=== PATIENT | female | born 1980 | race Caucasian/White ===

== ENCOUNTER 2021-03-27 18:29 | Inpatient (IN) ==
[2021-03-27] MEDS ORDERED: OXYTOCIN 30 UNITS/500 ML BAG IV PRN ×2 (19:02→19:36)
[2021-03-27 19:26] LABS: Hematocrit (blood only) 37.1 % (37-47); Hemoglobin 11.9 g/dL (12.0-16.0); Mean Corpuscular Hemoglobin 25.8 pg (25-34); Mean Corpuscular Hgb Conc 32.1 g/dL (32-36); Mean Corpuscular Volume 80.3 fL (80-100); Mean Platelet Volume 10.5 fL (7.4-10.4); Platelet Count 215 K/uL (130-400); RDW Coefficient of Variation 14.6 % (11.5-14.5); RDW Standard Deviation 42.4 fL (36.4-46.3); Red Blood Count 4.62 M/uL (4.2-5.4)
--- NOTE | 2021-03-27 19:29 | History & Physical Report ---
Date of Service March 27, 2021 Assessment & Plan (1) premature rupture of membranes: Plan: 40 y/o at 36 3/7 wga presenting w/ PPROM VSS Fetus cat 1 PPROM - at this GA will move forward with delivery. Discussed risks vs benefits of bmz, this was also discussed with coin dealer transportation department head who did not feel was indicated at this GA. Pt and will defer at this time. Plan to let pt ambulate and recheck, will start pit if no change GBS neg Epidural PRN History of Present Illness Chief Complaint: LOF Primary Care Provider: Jesús Lauren, 40 y/o at 36 3/7 wga w/ COLLIN 04/21 by LMP presents due to LOF. Had big gush around 530 pm and has been leaking since then. 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 Allergies Allergy/AdvReac Type Severity Reaction Status Date / Time latex Allergy Unknown "MILD" - Verified 03/25/21 10:53 REDNESS , ITCHY Penicillins Allergy Unknown UNSURE - Verified 03/25/21 10:53 NEVER HAD, GRANMOTHER AND MOM/ SEVERE HIVE REACTION Home Medications Medication Instructions Recorded Confirmed Type prenat.vits,noemy,aun-nrzq-ffcgi 1 tab PO DAILY 02/03/20 03/27/21 History Patient History Medical History (Updated 03/27/21 @ 19:47 by Anahi Payton MD) History of anesthesia reaction WAKE UP FAST FROM ANESTHESIA, APPEAR AWAKE BUT REMAIN DISORIENTED History of depression Missed ab Surgical History (Updated 03/27/21 @ 19:43 by Anahi Payton MD) H/O laparoscopy 12/16/01 - LLQ pain H/O oral surgery History of loop electrical excision procedure (LEEP) 2019 Status post colposcopy Bx with ECC: 04/22/11 & 12/13/09 Social History (Updated 09/13/20 @ 13:39 by Karen Cooper) Smoking Status: Never smoker Hx Alcohol Use: No Hx Substance Use: No Preferred Language: Korean Communication Ability: Effective Code And Test Clerk Required: No Beliefs That Will Affect Care: None marital status: marital status details: Bret (54) [phone] Current Living Situation: Spouse Current Living Situation Comment: lives with spouse, 10 dogs, 3 cats, 15 parrots, spouse to do litter. 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 Other Information That Helps Us Care for You: No Feels Safe at Home: Yes Physical Activity Frequency: 3-4 Times per Week Assistive Devices: None Physical Exam Constitutional: WD/WN, vitals as above Respiratory: normal respiratory effort; no respiratory distress and no labored breathing Genitourinary: OB Exam Abdomen: + vertex and + estimated weight (6-7) Manual OB Exam: + cervical dilation 2 cm, + cervical effacement 90%, + station - 2 and + amniotic fluid (+nitrazine, pooling, ferning) OB Exam Monitor Tracing: + external FHT monitor used, + external uterine monitor used (irreg ctx) and + category I (150/mod/+accel/-decel) Results & Data ([facility]) Vital Signs (Past 12 Hours) Vital Signs Temp Resp 03/27/21 18:34 99.0 F 18 Laboratory Results OB Labs: Blood Type A Positive 09/17/20 Antibody Screen NEGATIVE 09/17/20 Hemoglobin 12.0 g/dL (12.0-16.0) 01/28/21 Hematocrit 37.2 % (37-47) 01/28/21 Mean Corpuscular Volume 88.7 fL (80-100) 09/17/20 Platelet Count 304 K/uL (130-400) 09/17/20 Rubella IgG Antibody Immune (Immune) 09/17/20 Rapid Plasma Reagin Nonreactive (Nonreactive) 09/17/20 Hepatitis B Surface Antigen Neg (Neg) 09/17/20 HIV (1&2) Ab and P24 Ag, 4th Gener Neg (Neg) 09/17/20 Glucose 1 Hour 50 gm Load 148 mg/dl (70-130) H 01/28/21 Maternal Serum Alpha Fetoprotein 34.0 ng/mL 11/05/20 OB Optional Labs: Chlamydia trachomatis RNA NOT DETECTED (NOT DETECTED) 09/17/20 Neisseria gonorrhoeae RNA NOT DETECTED (NOT DETECTED) 09/17/20 Alpha Fetoprotein Triple Screen SEE NOTE 11/05/20 Labs Reviewed: low risk cfdna neg cf/sma neg msafp GBS neg Coding Level of Care Code None Diagnoses premature rupture of membranes O42.919
[2021-03-27] MEDS: LACTATED RINGER'S 1,000 ML IV PRN (19:35)
[2021-03-28] MEDS ORDERED: SODIUM CHLORIDE 0.9% INJ 10 ML VIAL ONE (00:18)
[2021-03-28] MEDS ORDERED: ePHEDrine sulfate 50 MG/ML AMP ONE (00:18)
[2021-03-28] MEDS ORDERED: BUPIVACAINE 0.25% 30 ML VIAL ONE (00:18)
[2021-03-28] MEDS ORDERED: fentaNYL citrate 100 MCG/2 ML VIAL ONE ×2 (00:18→14:10)
[2021-03-28] MEDS ORDERED: fentaNYL 2MCG/ML ROPIVACAINE 1.25MG/ML 100 ML BAG EPI ONE (00:19)
[2021-03-28] MEDS: LACTATED RINGER'S 1,000 ML IV PRN ×2 (00:36→06:27)
[2021-03-28] MEDS ORDERED: ONDANSETRON INJ 2 MG/ML 2 ML VIAL IV PRN (00:46)
[2021-03-28] MEDS ORDERED: ePHEDrine sulfate 50 MG/ML AMP IV PRN ×2 (00:46→13:46)
[2021-03-28] MEDS ORDERED: diphenhydrAMINE 50 MG/ML VIAL IV PRN ×2 (00:46→13:46)
[2021-03-28] MEDS ORDERED: NALBUPHINE HCL INJ 10 MG/ML AMP IV PRN ×2 (00:46→13:46)
[2021-03-28] MEDS ORDERED: fentaNYL 2MCG/ML ROPIVACAINE 1.25MG/ML 100 ML BAG EPI PRN (00:46)
[2021-03-28] MEDS ORDERED: NALOXONE HCL 1 MG in SODIUM CHLORIDE 0.9% 1000ML 1,000 ML IV PRN ×2 (00:46→13:46)
[2021-03-28] MEDS ORDERED: NALOXONE HCL 0.4 MG/1 ML VIAL/CARP IV PRN ×2 (00:46→13:46)
--- NOTE | 2021-03-28 00:48 | Anesthesiology Consultation ---
Date of Service March 28, 2021 Assessment & Plan Chart Review Chart Review: Patient NOT seen in Pre Admission Testing and Acceptable Risk for Labor Epidural Consults Requested none ASA ASA2 Proposed Anesthesia Anesthesia Type: Labor Epidural and CSE Risk / Benefits Reviewed With: PT / POA / Parent / Guardian, Accepts Plan and Informed Consent Obtained History Height/Weight Height: 5 ft 3 in Weight: 79 kg Allergies Allergy/AdvReac Type Severity Reaction Status Date / Time latex Allergy Unknown "MILD" - Verified 03/25/21 10:53 REDNESS , ITCHY Penicillins Allergy Unknown UNSURE - Verified 03/25/21 10:53 NEVER HAD, GRANMOTHER AND MOM/ SEVERE HIVE REACTION Medications Home Medications Medication Instructions Recorded Confirmed Last Taken prenat.vits,noemy,fcr-ivxd-ifees 1 tab PO DAILY 02/03/20 03/27/21 03/25/20 Active Medications Generic Name Dose Route Start Last Admin Trade Name Freq PRN Reason Stop Dose Admin Lactated Ringer's 1,000 mls @ 125 mls/hr 03/27/21 19:02 03/28/21 00:36 Lr IV 03/29/21 19:01 999 mls/hr .Q8H PRN Administration L&D Protocol Protocol Oxytocin 30 units in 500 mls @ 6 mls/hr 03/27/21 19:36 03/27/21 23:45 Pitocin IV 03/29/21 19:35 0.36 units/hr .Q24H PRN 6 mls/hr Labor Induction/Augmentation Titration Protocol 0.36 UNITS/HR NPO Date Last Intake of Fluids: 03/28/21 Time Last Intake of Fluids: 00:15 Date Last Intake of Solids: 03/27/21 Time Last Intake of Solids: 18:00 Past Medical History Medical History History of anesthesia reaction WAKE UP FAST FROM ANESTHESIA, APPEAR AWAKE BUT REMAIN DISORIENTED History of depression Missed ab Exercise / Class Metabolic Activity II 4-5 Yardwork/Stairs/Walk up hill Past Surgical History Surgical History H/O laparoscopy 12/16/01 - LLQ pain H/O oral surgery History of loop electrical excision procedure (LEEP) 2020 Status post colposcopy Bx with ECC: 04/22/11 & 12/13/09 Past Anesthesia History No Hx of Anesthesia Complications and No Family Hx of Anesthesia Complications History of PONV No Hx of PONV and No Hx of Motion Sickness Social History Smoking Status: Never smoker Hx Alcohol Use: No Alcohol type: beer, wine and hard liquor alcohol intake frequency: 0-2 drinks per day Hx Substance Use: No substance use type: does not use Review of Systems no chest pain or sob Physical Exam Vital Signs Last Vital Signs Temp 37.0 C 03/28/21 00:00 Pulse 88 03/28/21 00:44 Resp 18 03/27/21 22:30 BP 114/70 03/28/21 00:39 Pulse Ox 98 03/28/21 00:44 ENMT Mouth: no TMJ abnormality Thyromental Distance: > or= 3.5 Finger Breadths Mallampati Class: II Neck normal visual inspection Respiratory normal respiratory effort Auscultation: lungs clear to auscultation bilaterally Cardiovascular Rate/Rhythm: regular rate and regular rhythm Musculoskeletal Spine: normal cervical ROM Neurologic moves all extremities Psychiatric Orientation: alert and oriented x 3 Testing Laboratory Results 03/27/21 19:20
[2021-03-28] MEDS ORDERED: CITRIC ACID/SODIUM CITRATE 15 ML UDC ONE (12:58)
[2021-03-28] MEDS ORDERED: ceFAZolin 2000MG 2,000 MG/15 ML SYR IV SCH (13:00)
[2021-03-28] MEDS ORDERED: AZITHROMYCIN 500 MG in DEXTROSE 5% 250 ML IV SCH (13:00)
[2021-03-28] MEDS ORDERED: LIDOCAINE 2%/EPINEPHRINE 1:200,000 20 ML SDV ONE (13:23)
[2021-03-28] MEDS ORDERED: OXYTOCIN 10 UNITS/ML VIAL ONE (13:23)
[2021-03-28] MEDS ORDERED: ONDANSETRON INJ 2 MG/ML 2 ML VIAL ONE (13:28)
[2021-03-28] MEDS ORDERED: MoRPHine SULFATE PF 1 MG/ML 10 ML AMP/VIAL ONE (13:31)
[2021-03-28] MEDS ORDERED: LACTATED RINGER'S 500 ML IV PRN (13:46)
[2021-03-28] MEDS ORDERED: MoRPHine SULFATE PF 1 MG/ML 10 ML AMP/VIAL INT SPINAL ONE (13:46)
[2021-03-28] MEDS ORDERED: NALOXONE HCL 0.08 MG in SYRINGE 1.8 ML IV PRN (13:46)
[2021-03-28] MEDS ORDERED: MEPERIDINE HCL 25 MG/ML CARP/VIAL IV PRN (13:46)
[2021-03-28] MEDS ORDERED: NO NARCOTICS OR SEDATIVES SCH (14:00)
[2021-03-28] MEDS ORDERED: DC INTRASPINAL MORPHINE SCH (14:00)
[2021-03-28] MEDS ORDERED: SODIUM CHLORIDE 0.9% 1000ML 1,000 ML IV SCH (14:00)
--- NOTE | 2021-03-28 14:40 | Post Operative Brief Note ---
PG Immediate Post Op with CF Date of Surgery March 28, 2021 Pre & Post Diagnosis Operation Date: 03/28/21 13:00 Pre-Op Diagnosis: Spontaneous Rupture of Membranes at 36 Weeks; Primary Section for Arrest of Descent. Post-Op Diagnosis: Spontaneous Rupture of Membranes at 36 Weeks; Primary Section for Arrest of Descent. I identified the patient and participated in the time-out.: Yes Procedure Operation Date: 03/28/21 13:00 Actual Procedures p Section in LD; Live Female at 1336 in OR #3.(Bilateral) - Oren Worrell MD Surgeon Oren Worrell MD Computer Forensic Specialist Nursing Estimated Blood Loss 550 Findings Consistent with Post-Op Diagnosis Specimens Specimen Description: Placenta (Hold) Cord Blood Drains Martinez Catheter OB Procedure charges OB Charges 91545
[2021-03-28] MEDS ORDERED: HYDROCORTISONE ACETATE 25 MG SUPP PR PRN (14:41)
[2021-03-28] MEDS ORDERED: DIPHTHERIA/TETANUS/PERTUSSIS 0.5 ML SYR/VIAL IM ONE (14:41)
[2021-03-28] MEDS ORDERED: SUPERCREAM 0.870% 15 GM JAR EXT PRN (14:41)
[2021-03-28] MEDS ORDERED: BENZOCAINE 20% AER SPR 82.5 GM CAN EXT PRN (14:41)
[2021-03-28] MEDS ORDERED: MAGNESIUM HYDROXIDE SUSP 30 ML UDC PO PRN (14:41)
[2021-03-28] MEDS ORDERED: SENNA 8.6 MG TAB PO PRN (14:41)
[2021-03-28] MEDS ORDERED: LACTATED RINGER'S 1,000 ML IV SCH (14:45)
--- NOTE | 2021-03-28 14:55 | Anesthesiology Progress Note ---
Date of Service March 28, 2021 Anesthesia Post Procedure Vital Signs Vital Signs: Temp Pulse Resp BP Pulse Ox 03/28/21 14:52 112 H 98 03/28/21 14:51 101 H 92 03/28/21 14:49 95 H 117/79 03/28/21 13:00 111 H 100 03/28/21 12:55 91 H 100 03/28/21 12:50 88 99 03/28/21 12:45 107 H 99 03/28/21 12:40 87 100 03/28/21 12:39 88 110/70 03/28/21 12:35 102 H 100 03/28/21 12:30 108 H 100 03/28/21 12:25 80 99 03/28/21 12:23 92 H 84 L 03/28/21 12:20 84 100 03/28/21 12:17 100 H 81 L 03/28/21 12:15 90 100 03/28/21 12:10 92 H 100 03/28/21 12:05 90 100 03/28/21 12:00 105 H 99 03/28/21 11:55 86 100 03/28/21 11:50 99 H 91 03/28/21 11:46 95 H 90 03/28/21 11:45 98 H 99 03/28/21 11:40 98.8 F 98 H 22 99 03/28/21 11:39 81 109/60 03/28/21 11:35 125 H 100 03/28/21 11:30 96 H 100 03/28/21 11:27 95 H 86 L 03/28/21 11:25 90 100 03/28/21 11:20 82 99 03/28/21 11:15 81 98 03/28/21 11:10 86 99 03/28/21 11:09 87 106/59 L 03/28/21 11:05 86 99 03/28/21 11:00 98 H 100 03/28/21 10:55 80 99 03/28/21 10:50 84 100 03/28/21 10:45 75 98 03/28/21 10:40 76 98 03/28/21 10:39 85 123/76 03/28/21 10:35 80 98 03/28/21 10:30 83 98 03/28/21 10:25 75 97 03/28/21 10:20 83 98 03/28/21 10:15 97 H 99 03/28/21 10:13 84 92 03/28/21 10:10 80 99 03/28/21 10:09 84 125/56 L 03/28/21 10:05 102 H 94 03/28/21 10:00 87 99 03/28/21 09:57 96 H 90 03/28/21 09:55 75 97 03/28/21 09:50 87 99 03/28/21 09:48 98.2 F 20 03/28/21 09:47 82 92 03/28/21 09:44 100 H 99 03/28/21 09:39 89 99 03/28/21 09:38 93 H 109/57 L 03/28/21 09:34 90 98 03/28/21 09:31 96 H 89 L 03/28/21 09:29 105 H 94 03/28/21 09:24 99 H 100 03/28/21 09:23 85 121/56 L 03/28/21 09:19 101 H 100 03/28/21 09:15 87 93 03/28/21 09:14 92 H 94 03/28/21 09:09 89 98 03/28/21 09:08 117 H 160/82 H 03/28/21 09:04 87 98 03/28/21 09:00 88 94 03/28/21 08:59 89 106/61 99 03/28/21 08:54 92 H 99 03/28/21 08:49 89 99 03/28/21 08:48 95 H 93 03/28/21 08:44 89 97 03/28/21 08:40 109 H 92 03/28/21 08:39 96 H 105/53 L 98 03/28/21 08:34 94 H 99 03/28/21 08:33 90 87 L 03/28/21 08:29 109 H 98 03/28/21 08:24 101 H 98 03/28/21 08:23 77 112/58 L 03/28/21 08:22 91 H 89 L 03/28/21 08:19 114 H 100 03/28/21 08:14 90 100 03/28/21 08:09 85 128/60 99 03/28/21 08:06 95 H 91 03/28/21 08:04 84 100 03/28/21 08:00 100 H 89 L 03/28/21 07:59 87 99 03/28/21 07:54 84 113/63 100 03/28/21 07:53 93 H 87 L 03/28/21 07:49 85 100 03/28/21 07:48 93 H 90 03/28/21 07:44 86 100 03/28/21 07:43 94 H 90 03/28/21 07:39 90 100 03/28/21 07:38 77 120/59 L 03/28/21 07:34 97 H 100 03/28/21 07:29 78 100 03/28/21 07:24 87 99/61 L 99 03/28/21 07:19 78 99 03/28/21 07:14 84 99 03/28/21 07:09 98.4 F 80 18 97 03/28/21 07:08 94 H 102/59 L 03/28/21 07:04 88 98 03/28/21 06:59 79 99 03/28/21 06:54 83 99 03/28/21 06:53 84 109/63 03/28/21 06:49 79 97 03/28/21 06:44 86 98 03/28/21 06:39 82 111/66 98 03/28/21 06:34 77 98 03/28/21 06:29 78 97 03/28/21 06:25 98.4 F 83 18 111/69 03/28/21 06:24 85 97 03/28/21 06:19 97 H 96 03/28/21 06:14 76 96 03/28/21 06:09 80 99/54 L 97 03/28/21 06:04 104 H 97 03/28/21 06:00 18 03/28/21 05:59 75 96 03/28/21 05:54 101 H 96/56 L 97 03/28/21 05:49 100 H 97 03/28/21 05:44 86 97 03/28/21 05:39 84 100/58 L 96 03/28/21 05:34 82 97 03/28/21 05:30 20 03/28/21 05:29 90 96 03/28/21 05:24 72 96 03/28/21 05:22 76 97/54 L 03/28/21 05:19 101 H 97 03/28/21 05:16 95 H 100/66 03/28/21 05:15 98 H 68/38 L 03/28/21 05:14 98 H 98 03/28/21 05:09 80 96 03/28/21 05:04 90 99 03/28/21 05:00 16 03/28/21 04:59 92 H 93/54 L 98 03/28/21 04:54 81 97 03/28/21 04:49 79 98 03/28/21 04:45 78 105/60 03/28/21 04:44 78 99 03/28/21 04:39 77 99 03/28/21 04:34 77 97 03/28/21 04:30 18 03/28/21 04:29 78 93/50 L 98 03/28/21 04:24 88 97 03/28/21 04:19 92 H 97 03/28/21 04:15 85 108/56 L 03/28/21 04:14 89 99 03/28/21 04:09 88 97 03/28/21 04:04 86 97 03/28/21 04:00 98.2 F 86 18 128/85 03/28/21 03:59 96 H 98 03/28/21 03:54 77 97 03/28/21 03:49 81 96 03/28/21 03:44 79 109/64 97 03/28/21 03:39 79 96 03/28/21 03:34 88 96 03/28/21 03:29 84 102/60 96 03/28/21 03:24 81 96 03/28/21 03:19 84 96 03/28/21 03:15 80 108/62 03/28/21 03:14 91 H 97 03/28/21 03:09 83 96 03/28/21 03:04 85 96 03/28/21 02:59 87 109/62 98 03/28/21 02:54 87 96 03/28/21 02:49 84 96 03/28/21 02:44 81 113/68 98 03/28/21 02:39 86 97 03/28/21 02:34 80 98 03/28/21 02:30 98.8 F 20 03/28/21 02:29 106 H 97 03/28/21 02:24 104 H 97 03/28/21 02:19 83 97 03/28/21 02:14 83 109/55 L 96 03/28/21 02:09 124 H 98 03/28/21 02:04 94 H 97 03/28/21 02:00 88 18 102/56 L 03/28/21 01:59 86 97 03/28/21 01:54 82 96 03/28/21 01:49 81 97 03/28/21 01:44 96 H 95/54 L 98 03/28/21 01:39 100 H 97 03/28/21 01:34 90 98 03/28/21 01:30 91 H 18 106/59 L 03/28/21 01:29 90 97 03/28/21 01:26 95 H 100/59 L 03/28/21 01:25 18 03/28/21 01:24 99 H 98 03/28/21 01:20 20 03/28/21 01:19 95 H 108/60 97 03/28/21 01:17 106 H 109/53 L 03/28/21 01:15 20 03/28/21 01:14 101 H 97 03/28/21 01:10 18 03/28/21 01:09 121 H 101/62 98 03/28/21 01:07 100 H 110/65 03/28/21 01:05 98.8 F 92 H 18 110/64 03/28/21 01:04 91 H 98 03/28/21 01:03 85 113/72 03/28/21 01:02 18 03/28/21 01:01 91 H 118/86 03/28/21 00:59 91 H 99 03/28/21 00:54 94 H 99 03/28/21 00:49 89 100 03/28/21 00:44 88 98 03/28/21 00:39 88 114/70 98 03/28/21 00:34 102 H 99 03/28/21 00:00 98.6 F 03/27/21 23:44 92 H 99/62 L 03/27/21 22:39 83 128/80 03/27/21 22:30 98.8 F 18 03/27/21 21:00 98.6 F 03/27/21 19:50 90 126/76 03/27/21 18:34 99.0 F 18 Pain Intensity Lower Medial Perineal: Pain Intensity: 0 Transfer of Care Handoff Completed per policy Notes Mental Status: alert / awake / arousable and participated in evaluation Nausea / Vomiting: adequately controlled Pain: adequately controlled Airway Patency, RR, SpO2: stable & adequate BP & HR: stable & adequate Hydration State: stable & adequate Neuraxial Anesthesia: was administered and sensory block is resolving Anesthetic Complications: no major complications apparent and Pt Satisfied with anesthetic care
--- NOTE | 2021-03-28 14:55 | Anesthesia Procedure Note ---
Date of Service March 28, 2021 Anesthesia Post Epidural Note Vital Signs Vital Signs: Temp Pulse Resp BP Pulse Ox 98.8 F 112 H 22 117/79 98 03/28/21 11:40 03/28/21 14:52 03/28/21 11:40 03/28/21 14:49 03/28/21 14:52 Pain Intensity Lower Medial Perineal: Pain Intensity: 0 Notes Mental Status: alert / awake / arousable and participated in evaluation Nausea / Vomiting: adequately controlled Pain: adequately controlled Airway Patency, RR, SpO2: stable & adequate BP & HR: stable & adequate Hydration State: stable & adequate Neuraxial Anesthesia: was administered and sensory block is resolving Anesthetic Complications: no major complications apparent and Pt Satisfied with anesthetic care Epidural: Removed without complications and With tip intact
[2021-03-28] MEDS: KETOROLAC 30 MG/ML VIAL IV PRN ×2 (15:31→22:38)
[2021-03-28] MEDS: OXYTOCIN 20 UNITS in LACTATED RINGER'S 1,000 ML IV SCH (17:41)
[2021-03-28] MEDS: SIMETHICONE 80 MG CHEW PO SCH ×2 (18:13→21:06)
[2021-03-28] MEDS ORDERED: LIDOCAINE 2% JELLY 5 ML TUBE ONE (18:37)
[2021-03-28] MEDS: DOCUSATE SODIUM 100 MG CAP PO SCH (21:06)
[2021-03-29] MEDS: OXYTOCIN 20 UNITS in LACTATED RINGER'S 1,000 ML IV SCH (01:36)
[2021-03-29] MEDS: KETOROLAC 30 MG/ML VIAL IV PRN (06:11)
--- NOTE | 2021-03-29 07:20 | Obstetrical Progress Note ---
Date of Service <Sandrita Merino MD - Last Filed: 03/29/21 08:11> March 29, 2021 Assessment & Plan <Sandrita Merino MD - Last Filed: 03/29/21 08:11> (1) delivery, delivered, current hospitalization: 40 yo complicated by AMA, now POD1 from LTCS at 36wk4d for arrest of descent -Continue routine care -Vitals reviewed- HDS, afebrile -Blood type A+, GBS neg, Rubella immune -Encourage ambulation -Remove goss catheter -Advance diet as tolerated, start solids -Pain control with ibuprofen, oxycodone PRN -Zofran PRN for nausea -Encourage -F/u in 6 weeks with OB <Oren Worrell MD - Last Filed: 04/01/21 08:56> (1) delivery, delivered, current hospitalization: Subjective <Sandrita Merino MD - Last Filed: 03/29/21 08:11> Ambulation: limited ambulation Voiding: no voiding problems and goss catheter in place Passing Gas:: Yes Diet Tolerance:: clear liquids Lochia:: Moderate Feeding Type:: breast feeding Current Pain Level(1-10): 0 Pt reports feeling well overall, complains only of minor soreness and itching around incision. States she had nausea after surgery yesterday. Pain well- controlled on PRN medication. Has yet to have BM. Review of Systems Denies fevers/chills. Denies dyspnea, cough. Denies chest pain. Denies breast pain or discharge. Denies dysuria. Denies headache. Denies back pain. Physical Exam <Sandrita Merino MD - Last Filed: 03/29/21 08:11> General: Alert, oriented, no acute distress Cardiac: Regular rate and rhythm, normal S1, S2. No murmurs appreciated. Respiratory: Clear to auscultation b/l with good air flow entry, symmetric chest rise and fall. No wheezes or crackles. No increased work of breathing or accessory muscle use Abdomen: Soft, nontender, nondistended. Fundus firm and palpable at the umbilicus. Surgical incision clean, dry and intact without erythema, warmth or drainage. No guarding or rebound. Skin: No rashes or lesions Extremities: Warm, dry, well-perfused with capillary refill <2s b/l. No lower extremity edema, erythema or swelling. Negative Allan's sign b/l. Results & Data ([facility]) <Sandrita Merino MD - Last Filed: 03/29/21 08:11> Vital Signs (Past 12 Hours) Vital Signs Temp Pulse Resp BP Pulse Ox 03/29/21 06:33 18 96 03/29/21 05:30 18 98 03/29/21 04:00 36.7 C 84 18 120/70 97 03/29/21 03:00 18 96 03/29/21 01:30 18 98 03/29/21 00:30 18 96 03/28/21 23:30 37.0 C 86 18 118/67 98 03/28/21 22:00 18 96 03/28/21 20:30 36.7 C 94 H 18 114/56 L 97 03/28/21 19:30 18 97 <Oren Worrell MD - Last Filed: 04/01/21 08:56> Co-Signing Physician Notes Patient seen and evaluated and agree with the above findings and plan. Routine care Resident Activity Tracking <Sandrita Merino MD - Last Filed: 03/29/21 08:11> Resident Involvement: Resident Care Provided Care Provided: OB Delivery
[2021-03-29] MEDS ORDERED: diphenhydrAMINE 50 MG/ML VIAL IV PRN (07:48)
[2021-03-29] MEDS ORDERED: ONDANSETRON INJ 2 MG/ML 2 ML VIAL IV PRN (07:48)
[2021-03-29] MEDS ORDERED: KETOROLAC 30 MG/ML VIAL IV PRN (07:48)
[2021-03-29] MEDS ORDERED: diphenhydrAMINE Capsule 25 MG CAP PO PRN (07:48)
[2021-03-29] MEDS ORDERED: oxyCODONE/ACETAMINOPHEN 5mg/325mg TAB PO PRN (07:48)
[2021-03-29] MEDS ORDERED: PROMETHAZINE HCL 25 MG in SODIUM CHLORIDE 0.9% 50 ML IV PRN (07:48)
[2021-03-29 08:28] LABS: Basophils # (auto) 0.02 K/uL (0-0.2); Basophils % (auto) 0.1 %; Eosinophils # (auto) 0.03 K/uL (0-0.5); Eosinophils % (auto) 0.2 %; Hematocrit (blood only) 30.3 % (37-47); Hemoglobin 9.6 g/dL (12.0-16.0); Immature Granulocytes # (auto) 0.07 K/uL (0.00-0.02); Immature Granulocytes % (auto) 0.4 %; Lymphocytes # (auto) 1.25 K/uL (1.2-3.4); Lymphocytes % (auto) 7.9 %; Mean Corpuscular Hemoglobin 25.3 pg (25-34); Mean Corpuscular Hgb Conc 31.7 g/dL (32-36); Mean Corpuscular Volume 79.9 fL (80-100); Monocytes # (auto) 0.98 K/uL (0.11-0.59); Monocytes % (auto) 6.2 %; Neutrophils # (auto) 13.54 K/uL (1.4-6.5); Neutrophils % (auto) 85.2 %; Platelet Count 182 K/uL (130-400); RDW Standard Deviation 43.6 fL (36.4-46.3); Red Blood Count 3.79 M/uL (4.2-5.4); White Blood Count 15.89 K/uL (4.8-10.8)
--- NOTE | 2021-03-29 08:32 | Operative Report (OR) ---
DATE OF SERVICE: 03/28/2021 PROCEDURE: Primary low transverse section following failed vacuum-assisted vaginal delivery . SURGEON: Oren Worrell MD. PREOPERATIVE DIAGNOSES: 1. Single intrauterine at 36 weeks 5 days gestational age. 2. Spontaneous rupture of membranes. 3. Advanced maternal age. 4. Arrest of descent with failed vacuum-assisted delivery. POSTOPERATIVE DIAGNOSES: 1. Single intrauterine at 36 weeks 5 days gestational age. 2. Spontaneous rupture of membranes. 3. Advanced maternal age. 4. Arrest of descent with failed vacuum-assisted delivery. 5. Status post delivery. ESTIMATED BLOOD LOSS: 550 mL. DRAINS: None. FLUIDS: Continuous lactated Ringer. URINE OUTPUT DURING PROCEDURE: None. COMPLICATIONS: None. FINDINGS: Viable female with weight and Apgars pending. HOSPITAL COURSE: Hoda is a 40-year-old , admitted at 36 weeks 5 days' gestational age for s pontaneous rupture of membranes. The patient was started on oxytocin per regular protocol and progre ssed in labor to complete-complete, +1 station. The patient began to push and pushed initially for a pproximately 2 hours and 15 minutes, at which time she had significant fatigue, and a 45-60 minute de lay and break time was initiated, after which the patient pushed for another hour, after which there was noted to be descent to about +2 station. We discussed a vacuum-assisted vaginal delivery, which the patient verbally consented to the procedure. After consents were reviewed, the vacuum was placed 2 cm anterior to the posterior fontanelle and engaged within the green zone. Gentle traction was ap plied during active pushing with minimal descent of head. This was attempted over 4 contractio ns with 2 pop-offs including a pop-off at the completion of the last contraction effort. Decision at that point was to discontinue the vacuum-assisted delivery and proceed with a section, whic h the patient was agreeable to. Consents were reviewed and signed. DESCRIPTION OF PROCEDURE: The patient was taken to the operating room after consents were assured. Upon presentation, she was properly identified. The epidural anesthesia was bolused to achieve adequ ate surgical levels. The patient was then prepped and draped in the normal sterile fashion. Preproc edural timeout was performed. A Pfannenstiel incision was then made with a knife. This was carried down to underlying fascia with the Bovie. The fascia was then nicked at the midline with a knife and extended laterally in each direction with pickloren and Diamond scissors. The superior aspect of the fas ines was grasped with Kochers x2, elevated off the underlying rectus muscles using blunt dissection. The inferior aspect of the fascia was then grasped with Kochers x2, elevated off the underlying rectu s muscles using blunt dissection. The midline was then entered bluntly, placed on stretch to provide adequate room for delivery and a b ladder blade was inserted. A bladder flap was then created in a normal fashion and a low transverse uterine incision was then made with a knife. The uterine cavity was then entered bluntly and the shae sobia was noted to be cephalic with deep arrest. The head was then elevated out of the pelvis through the hysterotomy without significant difficulty. The was initially stimulated on the surgical field and was not noted to be vigorous, and after about 15 seconds, the cord was double clamped and cut. was taken to the waiting nursery staff. Cord blood was obtained. Attention was then turned to delivery of the placenta, which was delivered intact with a 3-vessel cor d, gentle cord traction. The uterus was then wrapped in a wet lap and several passes were made insid e to remove any remaining membranes with a dry lap. At that time, the Martinez catheter was visualized and it was unclear whether this was due to being in the vagina or a bladder injury. After careful in spection, it was noted to be that the Martinez was in the vagina and had come out through the hysterotom y. The Martinez was then pulled. There was only noted to be bloody amniotic fluid within the Martinez cath eter. Inspection of the bladder was noted to be intact and placement of Martinez at the completion of t he case was notable for yellow urine. The hysterotomy was then reapproximated with 0 Vicryl continuous running lock stitch. There was note d to be bilateral downward extensions, which were carefully repaired with 0 Vicryl in continuous runn ing locked stitch. A second imbricating layer was performed and excellent hemostasis noted. The pos terior cul-de-sac was then cleaned of clots and debris. Both bilateral ovaries and tubes were noted to be normal appearing and uterus was returned to the maternal abdomen. Bilateral pericolic gutters were then cleaned of clots and debris. Uterus was then reinspected and noted to be hemostatic. The subcutaneous fascial and muscle layers were inspected and noted to be hemostatic. The fascia was then reapproximated with 0 Vicryl in a continuous running stitch. The subcutaneous layers were reap proximated with 2-0 plain. The skin was reapproximated with 3-0 Vicryl in a subcuticular stitch with a Fercho needle. Needle, sponge, and instrument counts were correct at the completion of the case. Both mother and were stable in the immediate post-delivery period. A Martinez catheter was plac ed after the completion of the case and yellow urine noted. Job ID: [id number]
[2021-03-29] MEDS: FERROUS SULFATE 325 MG TAB PO SCH (08:47)
[2021-03-29] MEDS: PRENATAL VITAMIN 1 TAB PO SCH (08:47)
[2021-03-29] MEDS: SIMETHICONE 80 MG CHEW PO SCH ×4 (08:47→19:59)
[2021-03-29] MEDS: DOCUSATE SODIUM 100 MG CAP PO SCH ×2 (08:48→19:59)
[2021-03-29] MEDS: IBUPROFEN 600 MG TAB PO PRN ×3 (11:10→22:17)
[2021-03-29] MEDS ORDERED: bisacodyL 5 MG TABEC PO SCH (20:00)
[2021-03-30] MEDS: IBUPROFEN 600 MG TAB PO PRN ×2 (02:48→08:01)
[2021-03-30 05:50] LABS: Hematocrit (blood only) 30.5 % (37-47); Hemoglobin 9.6 g/dL (12.0-16.0)
--- NOTE | 2021-03-30 06:18 | Obstetrical Progress Note ---
Date of Service <Sandrita Merino MD - Last Filed: 03/30/21 07:15> March 30, 2021 Assessment & Plan <Sandrita Merino MD - Last Filed: 03/30/21 07:15> (1) delivery, delivered, current hospitalization: 40 yo complicated by AMA, now POD2 from LTCS at 36wk4d for arrest of descent -D/c today to home pending pediatric clearance -Vitals reviewed- HDS, afebrile -Blood type A+, GBS neg, Rubella immune -Pain control with ibuprofen, oxycodone PRN. Percocet script sent for discharge. -Encourage -F/u in 6 weeks with OB. care instructions given. <Delmi Sullivan DO - Last Filed: 03/30/21 07:28> (1) delivery, delivered, current hospitalization: Subjective <Sandrita Merino MD - Last Filed: 03/30/21 07:15> Ambulation: ambulating normally Voiding: no voiding problems Passing Gas:: Yes Diet Tolerance:: regular diet Lochia:: Small Feeding Type:: breast feeding (Also supplementing with formula) Current Pain Level(1-10): 0 Pt feeling well overall, denies any acute complaints. Has minor occasional soreness around incision site but pain well-controlled on PRN medications- took one Percocet last night. Has yet to pass BM. Review of Systems Denies fevers/chills. Denies dyspnea, cough. Denies chest pain. Denies breast pain or discharge. Denies dysuria. Denies headache. Denies back pain. Physical Exam <Sandrita Merino MD - Last Filed: 03/30/21 07:15> General: Alert, oriented, no acute distress Cardiac: Regular rate and rhythm, normal S1, S2. No murmurs appreciated. Respiratory: Clear to auscultation b/l with good air flow entry, symmetric chest rise and fall. No wheezes or crackles. No increased work of breathing or accessory muscle use Abdomen: Soft, nontender, nondistended. Fundus firm and palpable at 1 cm below umbilicus. Surgical incision healing well- clean, dry and intact without erythema, warmth or drainage. No guarding or rebound. Skin: No rashes or lesions Extremities: Warm, dry, well-perfused with capillary refill <2s b/l. No lower extremity edema, erythema or swelling. Negative Allan's sign b/l. Results & Data ([facility]) <Sandrita Merino MD - Last Filed: 03/30/21 07:15> Vital Signs (Past 12 Hours) Vital Signs Temp Pulse Resp BP Pulse Ox 03/29/21 19:40 36.7 C 99 H 16 132/79 100 03/29/21 19:20 36.7 C 89 16 134/77 98 <Delmi Sullivan DO - Last Filed: 03/30/21 07:28> Co-Signing Physician Notes Resident Physician Supervision Note: I was present with Dr. Varma during the history and exam. I discussed the case with the resident and agree with the findings and plan as documented in the note. Any exceptions or clarifications are listed here: POD#2 doing well. DC home, Rx #20 percocet tabs, followup 6w PP. Documented By: Delmi Sullivan DO Resident Activity Tracking <Sandrita Merino MD - Last Filed: 03/30/21 07:15> Resident Involvement: Resident Care Provided Care Provided: OB Delivery
[2021-03-30] MEDS: SIMETHICONE 80 MG CHEW PO SCH (08:01)
[2021-03-30] MEDS: PRENATAL VITAMIN 1 TAB PO SCH (08:01)
[2021-03-30] MEDS: DOCUSATE SODIUM 100 MG CAP PO SCH (08:01)
[2021-03-30] MEDS: FERROUS SULFATE 325 MG TAB PO SCH (08:01)
[2021-03-30] MEDS ORDERED: bisacodyL 10 MG SUPP PR PRN (14:41)
--- NOTE | 2021-04-04 09:17 | Discharge Summary (DS) ---
DATE OF ADMISSION: 03/27/2021 DATE OF DISCHARGE: 03/30/2021 HOSPITAL COURSE: The patient was admitted for spontaneous rupture of membranes at 36 weeks 5 days. The patient was noted to be in labor and progressed to complete-complete, +1 station. The patient be cole to push at approximately 7:30 a.m. and pushed for approximately 2 hours with descent to about +2 station noted. The patient had intermittent periods of good pushing as well as followed by periods o f minimal progression. A 1-hour break period was allowed midway through the pushing time, after which pushing resumed. The patient pushed adequately with progression to around +2 station. After approx imately 3 hours of pushing, a vacuum-assisted delivery was offered to the patient due to maternal exh austion. The patient verbally consented for the procedure and ultimately ended up in failure of the vacuum. We discussed proceeding with a primary low transverse section, which the patient wa s agreeable to. The procedure was performed without complication and the patient remained in postoper ative care/ care for 2 days post-delivery. The patient had no additional complications or c oncerns and was discharged home on day #2 with both written and verbal discharge instructi ons. See operative report for additional details about delivery. Job ID: [id number]
== END 2021-03-30 11:12 | disposition home or self-care (01) | DRG 788 ==
LOC: OPB 18:29 → 4S1 18:31 → 4S2 03-28 17:25